=== PATIENT | male | born 1995 | race Caucasian/White ===

== ENCOUNTER 2022-02-09 16:19 | Emergency (ER) | payer BC, SELFPAY ==
--- NOTE | ~2022-02-09 | XR_ITS ---
EXAMINATION: XR chest 2V Exam Date/Time: 02/09/2022 17:12 CDT HISTORY: chest pain Comparison: 10/27/2015. RESULT: Lines, tubes, and devices: None. Lungs and pleura: Clear. Cardiomediastinal silhouette: Stable. Other: No acute osseous or upper abdominal finding. IMPRESSION: No acute cardiopulmonary process. Reviewed, dictated and finalized at location [facility].
--- NOTE | 2022-02-09 16:21 | ECG_ITS ---
Measurements Intervals [place] Rate: 69 P: 72 WA: 135 QRS: 41 QRSD: 113 T: 53 QT: 380 QTc: 410 Interpretive Statements SINUS RHYTHM POSSIBLE RIGHT VENTRICULAR CONDUCTION DELAY [RSR (QR) IN V1/V2] ABNORMAL ECG NO PREVIOUS ECG AVAILABLE FOR COMPARISON Electronically Signed On 02-10-2022 12:20:00 CDT by Candelario Ortiz M.D.
[2022-02-09 16:29] VITALS: BP 138/78; PULSE 69; RESP 16; TEMP 36.6; O2SAT 99
[2022-02-09 16:38] LABS: Basophils Percent Auto 0.5 % (0.2-1.2); Eosinophils Absolute Auto 0.1 K/mm3 (0-0.3); Eosinophils Percent Auto 1.2 % (0-4.4); Hematocrit 45.7 % (42.0-52.0); Hemoglobin 15.1 g/dL (14.0-18.0); Immature Granulocyte Absolute 0.02 K/mm3 (0.00-0.031); Immature Granulocyte Percent A 0.3 % (0-0.5); Lymphocytes Absolute Auto 2.47 K/mm3 (0.9-3.2); Lymphocytes Percent Auto 32.8 % (18.3-44.2); Mean Corpuscular Hemoglobin 28.4 pg (26-34); Mean Corpuscular Volume 86.1 fl (80-100); Mean Platelet Volume 9.7 fl (7.4-10.4); Monocytes Absolute Auto 0.6 K/mm3 (0.1-0.6); Monocytes Percent Auto 7.4 % (2.6-8.5); Neutrophils Absolute Auto 4.4 K/mm3 (1.3-6.7); Neutrophils Percent Auto 57.8 % (45.5-73.1); Platelet Count Result 274 k/mm3 (150-375); Red Blood Count 5.31 M/mm3 (4.6-6.20); Red Cell Distribution Width 13.2 % (11.5-14.5); White Blood Count 7.5 K/mm3 (4.5-10.0)
[2022-02-09 16:46] LABS: INR 1.1; Prothrombin Time 13.9 Seconds (11.1-14.7)
[2022-02-09 16:47] LABS: Partial Thromboplastin Time 28.8 SECONDS (22.3-36.8)
[2022-02-09 16:48] LABS: Alanine Aminotransferase 22 U/L (6-50); Albumin Level 5.3 g/dL (3.5-5.1); Alkaline Phosphatase 64 U/L (38-126); Anion Gap 11 mmol/L (8-16); Aspartate Amino Transferase 24 U/L (17-59); Bilirubin,Total 0.6 mg/dL (0.2-1.3); Blood Urea Nitrogen 13 mg/dL (9-20); Calcium 9.9 mg/dL (8.4-10.2); Carbon Dioxide 28 mmol/L (22-30); Chloride 100 mmol/L (98-107); Estimated CRCL calculation 134 ml/min; Estimated Glomerular Filt Rate > 60; Glucose 97 mg/dL (65-110); Lipase 105 U/L (23-300); Sodium 139 mmol/L (137-145)
[2022-02-09 16:59] LABS: Troponin I < 0.012 ng/mL (0.000-0.034)
[2022-02-09 18:18] LABS: D Dimer < 0.22 ug/mL (<0.48)
[2022-02-09 18:52] VITALS: PULSE 68
[2022-02-09 18:58] LABS: NT Pro B Type Natriuretic Pept 26 pg/mL (5-100)
--- NOTE | 2022-02-09 18:59 | ED.CHESTPAIN ---
HPI - Chest Pain General Chief Complaint: Chest Pain <Yola Mckeon PA-C - Last Filed: 02/09/22 19:12> Stated Complaint: chest pain <Yola Mckeon PA-C - Last Filed: 02/09/22 19:12> Time Seen by Provider: 02/09/22 18:02 <Yola Mckeon PA-C - Last Filed: 02/09/22 19:12> Source: patient <BENJI Subramanian Last Filed: 02/09/22 19:12> Mode of arrival: ambulatory <BENJI Subramanian Last Filed: 02/09/22 19:12> Limitations: no limitations <BENJI Subramanian Last Filed: 02/09/22 19:12> History of Present Illness HPI narrative: This is a 27 year old male that presents to the ER for intermittent chest pain ongoing over the last week. Reports no known alleviating or exacerbating factors. The pain lasts briefly and resolves on its own. Reports feeling some palpitations. Reports associated shortness of breath as well. Denies lower extremity edema. <BENJI Subramanian Last Filed: 02/09/22 19:12> Related Data Home Medications: Home Medications Medication Instructions Recorded Confirmed cetirizine 10 mg tablet (Zyrtec) 10 mg PO BID 01/26/21 famotidine 40 mg tablet (Pepcid) 40 mg PO DAILY 01/26/21 loratadine 10 mg disintegrating 10 mg PO DAILY 01/26/21 tablet (Claritin RediTabs) omalizumab 75 mg/0.5 mL 75 mg subcut MONTHLY 01/26/21 subcutaneous syringe (Xolair) <BENJI Subramanian Last Filed: 02/09/22 19:12> Allergies/Adverse Reactions: Allergies Allergy/AdvReac Type Severity Reaction Status Date / Time amoxicillin Allergy Unknown Verified 09/04/18 11:07 Penicillins Allergy Unknown Verified 09/04/18 11:07 <BENJI Subramanian Last Filed: 02/09/22 19:12> Review of Systems Review of Systems: CONSTITUTIONAL: Denies fever CARDIOVASCULAR: Reports chest pain, palpitations. Denies edema. RESPIRATORY: Reports dyspnea. <Yola Mckeon PA-C - Last Filed: 02/09/22 19:12> All systems reviewed & are unremarkable except as noted in HPI and below <Yola Mckeon PA-C - Last Filed: 02/09/22 19:12> PMFSH Past Medical History Medical History: Medical History (Updated 02/09/22 @ 19:06 by Yola Mckeon PA-C) History of urticaria <Yola Mckeon PA-C - Last Filed: 02/09/22 19:12> Family History Family History: Family History Mother Diabetes mellitus Grandparent Malignant neoplasm of prostate <Yola Mckeon PA-C - Last Filed: 02/09/22 19:12> Social History Social History: Social History (Updated 02/09/22 @ 19:01 by Yola Mckeon PA-C) Smoking status: Never smoker Alcohol intake: current Substance use: never <Yola Mckeon PA-C - Last Filed: 02/09/22 19:12> Exam Narrative: GENERAL: Well-appearing, well-nourished, and in no acute distress. HEAD: Normocephalic, atraumatic. EYES: EOMI. CHEST: Clear to auscultation. No respiratory distress. No wheezes rales or rhonchi HEART: Regular rate and rhythm. No murmur heard. Normal peripheral pulses. EXTREMITIES: Normal range of motion. No edema. SKIN: Warm, dry, no rash. NEURO: No focal deficits. Alert and oriented x3. PSYCH: Normal mood and affect <Yola Mckeon PA-C - Last Filed: 02/09/22 19:12> Course [employer] INSPECTOR AND REPAIRER/PA Physician Supervision For this patient encounter, I reviewed the ELECT[employer] INSPECTOR AND REPAIRER or PA documentation, treatment plan, and medical decision making <Murphy Langston MD - Last Filed: 02/09/22 20:23> Vital Signs Vital signs: Vital Signs Temperature 98 F 02/09/22 16:29 Pulse Rate 69 02/09/22 16:29 Respiratory Rate 16 02/09/22 16:29 Blood Pressure 138/78 02/09/22 16:29 Pulse Oximetry 99 02/09/22 16:29 Oxygen Delivery Room Air 02/09/22 16:29 Temperature 98 F 02/09/22 16:29 Pulse Rate 74 02/09/22 19:20 Respiratory Rate 20 02/09/22 19:20 Blood Pressure 123/83 02/09/22 19:20 Pulse Oximetry 99 02/09/22 19:20 Oxygen Delivery Room
[2022-02-09 19:20] VITALS: BP 123/83; PULSE 74; RESP 20; O2SAT 99
== END 2022-02-09 19:22 | disposition home or self-care (01) ==
PROVIDERS: Emergency Medicine; Physician Assistant; Emergency Provider Emergency Medicine; PCP Internal Medicine
DX: R00.2 Palpitations (principal); R94.31 Abnormal electrocardiogram [ECG] [EKG]
CPT/HCPCS: 36415; 71046; 80053; 83690; 83880; 84484; 85025; 85380; 85610; 85730; 93005; 99284

== ENCOUNTER 2022-03-12 09:38 | Outpatient (CLI) | payer BC, SELFPAY ==
[2022-03-12 20:01] LABS: Magnesium 2.2 mg/dL (1.6-2.3)
[2022-03-12 20:25] LABS: Thyroid Stimulating Hormone 0.604 uIU/mL (0.465-4.680)
== END 2022-03-12 09:39 | disposition home or self-care (01) ==
LOC: ANHGOSHLAB 09:39
PROVIDERS: PCP Internal Medicine; Visit Provider Clinical Nurse Specialist
DX: R00.2 Palpitations (principal)
CPT/HCPCS: 36415; 83735; 84443